=== PATIENT | male | born 1955 | race Caucasian/White ===

== ENCOUNTER 2025-03-08 22:03 | Inpatient (IN) | payer OTHER, MEDICARE, SELFPAY ==
[2025-03-08] VITALS (8 sets, daily range): BP systolic 118–157; BP diastolic 54–108; BMI 29.4
[2025-03-08 14:36] LABS: Urine Character Slightly Cloudy (Clear)
[2025-03-08 14:41] LABS: Urine Squamous Cell 0-2 /LPF (Few)
[2025-03-08 14:42] LABS: Urine Red Blood Cell 16-20 /HPF (0-2); Urine White Cell >100 /HPF (0-5)
[2025-03-08 14:43] LABS: Hematocrit 33.8 % (39.0-52.0); Hemoglobin 10.9 g/dL (13.0-18.0); Mean Corp Hgb Conc. 32.2 g/dL (33.0-37.0); Mean Corpuscular Volume 91.8 fL (80.0-94.0); Nucleated Red Blood Cells % 0 % (-); Platelet Count 246 10^3/uL (130-400); Red Cell Dist. Width 16.1 % (11.5-14.5)
[2025-03-08 14:58] LABS: ALT (SGPT) 18 U/L (0-50); AST (SGOT) 24 U/L (17-59); Albumin 4.2 g/dl (3.5-5.0); Alkaline Phosphatase 88 U/L (38-126); Blood Urea Nitrogen 24 mg/dl (9-20); Calcium 9.1 mg/dl (8.4-10.2); Carbon Dioxide 23 mmol/L (22-30); Chloride 100 mmol/L (98-107); Glucose 104 mg/dl (70-99); Potassium 4.6 mmol/L (3.5-5.1); Sodium 132 mmol/L (135-145); Total Protein 7.5 g/dl (6.3-8.2); eGFR 43.37
--- NOTE | 2025-03-08 18:10 | PHANOTE ---
med rec note- patient has no ecw, given time md office if closed to call, patient having trouble remembering medication dose, [facility] not fills [facility], asked patient if every used mail order or home delivery he said no
--- NOTE | 2025-03-08 18:19 | ED.GENMED ---
History of Present Illness
<Clau Cabrales ELECTRONIC SYSTEM ENGINEER - Last Filed: 03/09/25 00:41>
General
Chief Complaint: Male Genito-Urinary Symptoms
Source: patient
Exam Limitations: none
Time Seen by Provider: 03/08/25 17:51
Nursing documentation reviewed up to this point in time: agreed with
History of Present Illness
History of Present Illness:
70-year-old male with history of, Bilateral urostomy tubes 2023 s/p radiation for prostate CA 2001 that 'destroyed my bladder.' Followed at [facility] Dr. Nolan.
Had both nephrostomy tubes inserted in 2023, R urostomy tube removed in 05/2024 then replaced 12/15 due to sepsis per pt and .
Pt started with 'shakes and fever' 2 p.m. yesterday. Temp max last evening 101.2. Took Excedrin 9 a.m. Denies n/v/d/c. Denies CP, SOB, abdominal pain.
Had video call with PCP this evening and told to go to either [facility] or here. They chose here as more convenient.
Past History
<Clau Cabrales ELECTRONIC SYSTEM ENGINEER - Last Filed: 03/09/25 00:41>
Past History
ED Past Medical History: Cancer (prostate CA with radiation that destroyed his bladded: bilateral nephrostomy tubes)
ED Past Surgical History: Urological (bilateral nephrostomy tubes)
Social History
Tobacco: Smoker
Alcohol: Occasional
Personal:
Living: with family
Review of Systems
<Clau Cabrales ELECTRONIC SYSTEM ENGINEER - Last Filed: 03/09/25 00:41>
Review of Systems
Allergies reviewed?: Yes
All Other Systems: ROS reviewed and negative except as documented in HPI and ROS
Constitutional: Reports fever, fatigue and chills
Respiratory: Denies trouble breathing
Cardiac: Denies chest pain
ABD/GI: Denies abdominal pain, nausea, vomiting or diarrhea
: Reports other (Bilateral nephrostomy tubes, both functioning)
Skin: Reports no symptoms
Neurological: Reports no symptoms
Phy Exam
<Clau Cabrales, ELECTRONIC SYSTEM ENGINEER - Last Filed: 03/09/25 00:41>
Physical Exam
Physical Exam:
GENERAL: No acute distress. A&Ox3.
CONSTITUTIONAL: 103.2
EYES: clear, conjunctivae normal
ENMT: moist mucus membranes, Pharynx nl
RESPIRATORY: Regular respirations, nonlabored, lungs clear.
CARDIOVASCULAR: Regular rate and rhythm, tachycardic rate 110, no murmurs, no rubs.
GI: Soft, nontender, normal BS
: Bilateral nephrostomy tubes intact, no redness or swelling to surrounding skin , both draining
MUSCULOSKELETAL: Moves with ease. Well perfused.
SKIN: Warm, dry, pink
PSYCH: Normal mood and affect. Well kept, interactive and appropriate
NEUROLOGIC: Awake, alert and oriented. No focal neurological deficits
Sepsis
<Clau Cabrales, ELECTRONIC SYSTEM ENGINEER - Last Filed: 03/09/25 00:41>
Sepsis Screening
Sepsis Assessment: Sepsis
Sepsis Screen
Sepsis Screen: Sepsis
Date: 03/09/25
Time: 00:40
<Marcelo Mccarthy DO - Last Filed: 03/08/25 20:06>
Sepsis Screen
Sepsis Screen: Sepsis
Date: 03/08/25
Time: 20:05
Course
<Clau Cabrales, ELECTRONIC SYSTEM ENGINEER - Last Filed: 03/09/25 00:41>
Orders/Labs/Results
Orders:
Orders
03/08/25 14:14
Electrocardiogram (*1) Urgent
Reason for Study: Other
Other Reason for Exam: Possible Sepsis
EKG- Treatment ONCE
03/08/25 14:27
Complete Blood Count/With Diff Urgent
Comprehensive Metabolic Panel Urgent
Lactic Acid Urgent
Urinalysis Reflex To Culture Urgent
Date Specimen was Collected: 03/08/25
Time Specimen was Collected: 14:14
Comment: from nephrostomy tube
Urine Microscopic Reflex Cult Urgent
Blood Culture Urgent
ANDREINA Source: Blood/Venous
Specimen Description:
Urine Culture Urgent
ANDREINA Source: U
Specimen Description:
Obtained by: Random
Date Specimen was Collected: 03/08/25
Time Specimen was Collected: 14:14
03/08/25 18:31
0.9% Sodium Chloride 1000 ml [Nss] 2,600 ml IV NOW STA
03/08/25 18:32
Acetaminophen [Tylenol] 1,000 mg PO NOW STA
CefTRIAXone [Rocephin] 1,000 mg IV NOW STA
03/08/25 18:48
UROLOGY CONSULT Urgent
Consulting Provider: Jacob Rice Jr.
Was physician already notified: Yes
Comment: Urosepsis w bilateral ureterostomy tubes
03/08/25 18:53
Lactic Acid Q4H
Comment: CANCEL 2nd LACTIC ACID IF 1st LACTIC ACID IS LESS THAN 2
Blood Culture Q30M
ANDREINA Source: Blood/Venous
Specimen Description:
Blood Culture Q30M
ANDREINA Source: Blood/Venous
Specimen Description:
03/08/25 21:17
Admit/Transfer Patient As Directed
Co-Sign Provider:
Level of Care: Inpatient admission
Assign to:: IMU- Intermediate Care
Physician / Group: Salvatore
Diagnosis: UTI, Bilateral PCN
Reason for Hospitalization: UTI, Bilateral PCN
Expected length of stay greater than two midnights?: Yes
ELOS- Estimated Length of Stay in days: 3
I certify the patient meets the requirements for IP care: Yes
03/08/25 21:18
PRN Pain Medication Management As Directed
May give lesser potent ordered pain med per pt: Yes
preference::
Protocol:: Medication orders for pain may be administered in a
manner that supports deferring to patient preference
when the pt is:
- Requesting an ordered lesser potent pain medication.
Least to most potent pain medications are defined
as: acetaminophen < NSAID < tramadol < opioids
(morphine, oxycodone, hydromorphone).
- Requesting a lesser dose of the same medication IF
ORDERED.
- Requesting a less intrusive route of administration
if both routes are prescribed by the provider (PO <
IV).
03/08/25 21:19
Code Status As Directed
Resuscitation Status: Full Code
03/09/25 00:40
Lactic Acid Q6H
0.9% Sodium Chloride 1000 ml [Nss] 1,000 ml IV 125 mls/hr
Albuterol Nebs [Ventolin Nebules] 2.5 mg INH R Q4HPRN PRN
CefTRIAXone [Rocephin] 1,000 mg IV Q24H
03/09/25 00:40
Ferritin Routine
Iron Routine
Total Iron Binding Routine
Activity As Directed
Activity Level: Ambulate
With Assistance
I/O [Intake/ Output] As Directed
Frequency: Per unit guidelines
Records Request [Obtain Records] As Directed
Dates of Information to be Released: Most Recent
Type of Information Requested: Entire Record
Obtain Records from: [facility]
Vital Signs As Directed
Frequency: Per unit guidelines
Weight As Directed
Frequency: Daily
Oxygen Therapy [O2 Therapy] [RESP] Routine
Titrate/Wean O2 to maintain O2 sat greater than (%): 94
DX Deep Vein Thrombosis Video Routine
03/09/25 01:00
Acetaminophen [Tylenol] 650 mg PO Q4HPRN PRN
03/09/25 Breakfast
NPO
Allow oral meds: Yes
Allow clear liquids: Sips of Clears
Basic Metabolic Panel IN AM
Complete Blood Count/No Diff IN AM
03/09/25 08:00
Heparin 5,000 units SC Q12
Levothyroxine [Synthroid] 112 mcg PO DAILY
Abnormal Lab Results
03/08/25
14:27
WBC 13.4 H 10^3/uL
(4.8-10.8)
RBC 3.68 L 10^6/uL
(4.70-6.10)
Hgb 10.9 L g/dL
(13.0-18.0)
Hct 33.8 L %
(39.0-52.0)
MCHC 32.2 L g/dL
(33.0-37.0)
RDW 16.1 H %
(11.5-14.5)
Abs Immat Gran (auto) 0.1 H 10^3/uL
(0-0.05)
Absolute Neuts (auto) 11.3 H 10^3/uL
(1.4-6.5)
Absolute Lymphs (auto) 0.8 L 10^3/uL
(1.2-3.4)
Absolute Monos (auto) 1.2 H 10^3/uL
(0.1-0.6)
Neutrophils % 84.5 H %
(42.2-75.2)
Lymphocytes % 5.7 L %
(20.5-51.1)
Sodium 132 L mmol/L
(135-145)
BUN 24 H mg/dl
(9-20)
Creatinine 1.7 H mg/dL
(0.7-1.3)
Glucose 104 H mg/dl
(70-99)
Ur Occult Blood Reflex 4+ A
(Negative)
Urine Nitrite (Reflex) Positive A
(Negative)
Leukocyte Esterase Rfl 3+ A
(Negative)
Urine RBC 16-20 A /HPF
(0-2)
Urine WBC (Reflex) >100 A /HPF
(0-5)
Urine Bacteria (Reflex) Moderate A
(Negative)
Urine Albumin (Reflex) 3+ A
(Neg - Trace)
03/08/25 14:27
03/08/25 14:27
Vital Signs
Initial and Last Documented VS:
Initial Vital Signs
Temp Pulse Resp BP Pulse Ox
99 F 116 20 139/97 99
03/08/25 14:07 03/08/25 14:07 03/08/25 14:07 03/08/25 14:07 03/08/25 14:07
Last Documented Vital Signs
Temp Pulse Resp BP Pulse Ox
103 F H 104 26 157/78 94
03/09/25 00:15 03/08/25 23:45 03/08/25 23:45 03/08/25 23:01 03/08/25 19:00
Yelt;Marcelo Mccarthy, DO - Last Filed: 03/08/25 20:06>
Orders/Labs/Results
Orders:
Orders
03/08/25 14:14
Electrocardiogram (*1) Urgent
Reason for Study: Other
Other Reason for Exam: Possible Sepsis
EKG- Treatment ONCE
03/08/25 14:27
Complete Blood Count/With Diff Urgent
Comprehensive Metabolic Panel Urgent
Lactic Acid Urgent
Urinalysis Reflex To Culture Urgent
Date Specimen was Collected: 03/08/25
Time Specimen was Collected: 14:14
Comment: from nephrostomy tube
Urine Microscopic Reflex Cult Urgent
Blood Culture Urgent
ANDREINA Source: Blood/Venous
Specimen Description:
Urine Culture Urgent
ANDREINA Source: U
Specimen Description:
Obtained by: Random
Date Specimen was Collected: 03/08/25
Time Specimen was Collected: 14:14
03/08/25 18:31
0.9% Sodium Chloride 1000 ml [Nss] 2,600 ml IV NOW STA
03/08/25 18:32
Acetaminophen [Tylenol] 1,000 mg PO NOW STA
CefTRIAXone [Rocephin] 1,000 mg IV NOW STA
03/08/25 18:48
UROLOGY CONSULT Urgent
Consulting Provider: Jacob Rice Jr.
Was physician already notified: Yes
Comment: Urosepsis w bilateral ureterostomy tubes
03/08/25 18:53
Lactic Acid Q4H
Comment: CANCEL 2nd LACTIC ACID IF 1st LACTIC ACID IS LESS THAN 2
Blood Culture Q30M
ANDREINA Source: Blood/Venous
Specimen Description:
Blood Culture Q30M
ANDREINA Source: Blood/Venous
Specimen Description:
03/08/25 21:17
Admit/Transfer Patient As Directed
Co-Sign Provider:
Level of Care: Inpatient admission
Assign to:: IMU- Intermediate Care
Physician / Group: Salvatore
Diagnosis: UTI, Bilateral PCN
Reason for Hospitalization: UTI, Bilateral PCN
Expected length of stay greater than two midnights?: Yes
ELOS- Estimated Length of Stay in days: 3
I certify the patient meets the requirements for IP care: Yes
03/08/25 21:18
PRN Pain Medication Management As Directed
May give lesser potent ordered pain med per pt: Yes
preference::
Protocol:: Medication orders for pain may be administered in a
manner that supports deferring to patient preference
when the pt is:
- Requesting an ordered lesser potent pain medication.
Least to most potent pain medications are defined
as: acetaminophen < NSAID < tramadol < opioids
(morphine, oxycodone, hydromorphone).
- Requesting a lesser dose of the same medication IF
ORDERED.
- Requesting a less intrusive route of administration
if both routes are prescribed by the provider (PO <
IV).
03/08/25 21:19
Code Status As Directed
Resuscitation Status: Full Code
03/09/25 00:40
Lactic Acid Q6H
0.9% Sodium Chloride 1000 ml [Nss] 1,000 ml IV 125 mls/hr
Albuterol Nebs [Ventolin Nebules] 2.5 mg INH R Q4HPRN PRN
CefTRIAXone [Rocephin] 1,000 mg IV Q24H
03/09/25 00:40
Ferritin Routine
Iron Routine
Total Iron Binding Routine
Activity As Directed
Activity Level: Ambulate
With Assistance
I/O [Intake/ Output] As Directed
Frequency: Per unit guidelines
Records Request [Obtain Records] As Directed
Dates of Information to be Released: Most Recent
Type of Information Requested: Entire Record
Obtain Records from: [facility]
Vital Signs As Directed
Frequency: Per unit guidelines
Weight As Directed
Frequency: Daily
Oxygen Therapy [O2 Therapy] [RESP] Routine
Titrate/Wean O2 to maintain O2 sat greater than (%): 94
DX Deep Vein Thrombosis Video Routine
03/09/25 01:00
Acetaminophen [Tylenol] 650 mg PO Q4HPRN PRN
03/09/25 Breakfast
NPO
Allow oral meds: Yes
Allow clear liquids: Sips of Clears
Basic Metabolic Panel IN AM
Complete Blood Count/No Diff IN AM
03/09/25 08:00
Heparin 5,000 units SC Q12
Levothyroxine [Synthroid] 112 mcg PO DAILY
Abnormal Lab Results
03/08/25
14:27
WBC 13.4 H 10^3/uL
(4.8-10.8)
RBC 3.68 L 10^6/uL
(4.70-6.10)
Hgb 10.9 L g/dL
(13.0-18.0)
Hct 33.8 L %
(39.0-52.0)
MCHC 32.2 L g/dL
(33.0-37.0)
RDW 16.1 H %
(11.5-14.5)
Abs Immat Gran (auto) 0.1 H 10^3/uL
(0-0.05)
Absolute Neuts (auto) 11.3 H 10^3/uL
(1.4-6.5)
Absolute Lymphs (auto) 0.8 L 10^3/uL
(1.2-3.4)
Absolute Monos (auto) 1.2 H 10^3/uL
(0.1-0.6)
Neutrophils % 84.5 H %
(42.2-75.2)
Lymphocytes % 5.7 L %
(20.5-51.1)
Sodium 132 L mmol/L
(135-145)
BUN 24 H mg/dl
(9-20)
Creatinine 1.7 H mg/dL
(0.7-1.3)
Glucose 104 H mg/dl
(70-99)
Ur Occult Blood Reflex 4+ A
(Negative)
Urine Nitrite (Reflex) Positive A
(Negative)
Leukocyte Esterase Rfl 3+ A
(Negative)
Urine RBC 16-20 A /HPF
(0-2)
Urine WBC (Reflex) >100 A /HPF
(0-5)
Urine Bacteria (Reflex) Moderate A
(Negative)
Urine Albumin (Reflex) 3+ A
(Neg - Trace)
03/08/25 14:27
03/08/25 14:27
Vital Signs
Initial and Last Documented VS:
Initial Vital Signs
Temp Pulse Resp BP Pulse Ox
99 F 116 20 139/97 99
03/08/25 14:07 03/08/25 14:07 03/08/25 14:07 03/08/25 14:07 03/08/25 14:07
Last Documented Vital Signs
Temp Pulse Resp BP Pulse Ox
103 F H 104 26 157/78 94
03/09/25 00:15 03/08/25 23:45 03/08/25 23:45 03/08/25 23:01 03/08/25 19:00
<Clau Cabrales, ELECTRONIC SYSTEM ENGINEER - Last Filed: 03/09/25 00:41>
MDM/Problems Addressed
Differential Diagnosis Includes:
urosepsis
MDM/Problems Addressed:
70-year-old male with history of, Bilateral urostomy tubes 2023 s/p radiation for prostate CA 2001 that 'destroyed my bladder.' Followed at [facility] Dr. Nolan.
Had both nephrostomy tubes inserted in 2023, R urostomy tube removed in 05/2024 then replaced 12/15 due to sepsis per pt and .
Pt started with 'shakes and fever' 2 p.m. yesterday. Temp max last evening 101.2. Took Excedrin 9 a.m. Denies n/v/d/c. Denies CP, SOB, abdominal pain.
Had video call with PCP this evening and told to go to either [facility] or here. They chose here as more convenient.
Temp 103.2
6:45 p.m.
CBC: WBC 13.4
CMP Creat 1.7 pt states his baseline is 1.4-1.6
Urine infected >100 WBCs, +Leukocyte Est +Nitrites
Septic protocol instituted
Consulted Urology Dr. Rice who will see in a.m. if nephrostomy tubes are functional will need IR tomorrow. Pt states both tubes are functional, R less so than left. R only gets 200 ml twice a day per patient...it's been that way ever since he got
the tubes.
7:15 p.m
Hospitalist notified of admission.
<Clau Cabrales, ELECTRONIC SYSTEM ENGINEER - Last Filed: 03/09/25 00:41>
*Pulse Oximetry
SaO2: 96
Oxygen Mode of Delivery: Room air
Patient hypoxic: no
*Critical Care Note
Total Time (30-74mins, 75-104mins- exclusive of procedures): Not Applicable
ED Attending Note
<Clau Cabrales, ELECTRONIC SYSTEM ENGINEER - Last Filed: 03/09/25 00:41>
-
Portions of this chart may have been created with voice recognition software.� Occasional wrong word or��sound alike� substitutions may have occurred due to the inherent limitations of voice recognition software.
<Marcelo Mccarthy DO - Last Filed: 03/08/25 20:06>
ED Attending Note
Patient seen and examined by attending physician: Yes
I performed the substantive portion of visit, reviewed & personally made and approve the management plan that is documented in note by myself or ALEXIA.: Yes
I performed a history and physical exam of patient and discussed management with resident, I reviewed resident's note and agree with documented findings and plan of care.: Yes
ED Attending Note:
70-year-old male presents to the ER for evaluation of fever. Patient has a prior history of prostate cancer and has bilateral nephrostomy tubes due to of side effect from radiation. Patient reports feeling generally unwell. Vital signs reviewed,
patient is awake, alert, appears no acute distress, mucous membranes tacky, heart regular rate and rhythm that murmurs or ectopy, GCS is 15, extremities without edema. Nurse practitioner was able to speak with on-call urology who would recommend IR
consultation in the morning for likely tube change. IV antibiotics are ordered. Patient admitted to the hospitalist in stable condition.
Discharge Plan
Departure
Patient Disposition: Admit
Date of Disposition: 03/08/25
Time of Disposition: 19:19
Presentation/result/management discussed w/ accepting MD/DO: Hospitalist
Condition: Serious
Discharge Problem:
Urosepsis
Interventions
Interventions:
*General Assessment Last Done: 03/08/25 18:19
*Neglect/Abuse Screening Last Done: 03/08/25 14:07
*ED COVID-19 Vaccine History Last Done: 03/08/25 18:19
*ED Influenza Vaccine History Last Done: 03/08/25 18:19
[facility] Risk Assessment Tool Last Done: 03/08/25 18:19
*Risk Screen - Suicide (C-SSRS) Last Done: 03/08/25 14:07
ED-Male Genitourinary Assessment Last Done: 03/08/25 17:46
[2025-03-08] MEDS: NSS 2600 ML IV (18:54)
[2025-03-08] MEDS: ROCEPHIN 1000 MG IV (18:55)
[2025-03-08] MEDS: TYLENOL 1000 MG PO (18:55)
--- NOTE | 2025-03-08 21:22 | HPS.HSE ---
Family Physician
-
Family Physician: Sravani Silva MD
Chief Complaint
-
Fever / Chills
History of Present Illness
Patient is a 70y M with PMH significant for obstructive uropathy and bilateral PCN tubes s/p prostate radiation who presents to ED complaining of fevers and chills since yesterday. Patient notes development of fevers, shaking chills and profuse
sweating yesterday afternoon. His symptoms persisted overnight and today he presented to the ED for further evaluation. Patient has bilateral PCN tubes in place.
He developed obstructive uropathy s/p prostate XRT and had tubes initially placed in 2022. His R PCN was removed for about 4-6 months. He developed UTI / sepsis in November of this year, was admitted at [facility] and the R PCN was replaced
at that time.
Patient states that he has felt fairly well since that hospitalization until yesterday.
He denies any cough, dyspnea, N/V/D, etc.
He does not urinate from below.
He reports normal urine output from his PCN tubes - always L > > R.
Medical History
Past Medical History
Past Medical History: Reports Other
Additional Past Medical History:
Prostate Cancer s/p XRT
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
CKD III
Hypothyroidism
Dyslipidemia
Asthma
Past Surgical History: Reports Other
Additional Past Surgical History:
T&A
Bilateral PCN Tubes (last replaced 11/2024)
Social History
Tobacco: Non-smoker
Alcohol: Occasional
Drug: None
Family History
Family History: Not pertinent
Allergies / Home Medications
Allergies reflects when Allergies were last updated in [employer].
Home Medications with original date entered in [employer]
Allergy/Medication List:
Allergies
Allergy/AdvReac Type Severity Reaction Status Date / Time
No Known Allergies Allergy Unverified 03/08/25 14:13
Home Medications
Crestor 1 tab PO DAILY 03/08/25
Symbicort 1 puff inhalation R DAILY Lung/Breathing Issues 03/08/25
albuterol sulfate 90 mcg/actuation aerosol inhaler 2 puff inhalation R Q6HPRN PRN sob 03/08/25
djfcqbf-emozyyogylbjc-oyodmimo 250 mg-250 mg-65 mg tablet (Excedrin Extra Strength) 2 tab PO DAILY Anti-Inflammatory 03/08/25
cetirizine 10 mg tablet (Zyrtec) 10 mg PO DAILY Allergies 03/08/25
levothyroxine 112 mcg tablet (Synthroid) 112 mcg PO DAILY 03/08/25
Review of Systems
-
History Source: Patient
A 12 point ROS was completed and negative except as noted: Yes
Constitutional: Reports Fever, Fatigue and Chills
EENT: Denies Sore Throat
Respiratory: Denies Cough or Trouble Breathing
Cardiac: Denies Chest Pain or Palpitations
Abdomen/GI: Denies Abdominal Pain, Nausea, Vomiting or Diarrhea
: Denies Dysuria, Flank Pain or Bleeding
Neurological: Denies Dizzy or Headache
Psych: Denies Depression or Anxiety
Physical Exam
Vital Signs
Vital Signs
Temp Pulse Resp BP Pulse Ox
100.1 F 101 26 118/54 94
03/08/25 20:19 03/08/25 20:15 03/08/25 20:15 03/08/25 20:00 03/08/25 19:00
Physical Exam
General: Other (70y M in no acute distress. Diaphoresis. Tactile fever.)
HEENT: Moist mucous membranes and PERRLA
Respiratory: Clear; No Wheezes, Rales or Rhonchi
Cardiac: S1/S2 and Regular Rhythm; No Murmur
GI: Soft, Non Tender, Non Distended and Normal Bowel Sounds
Genito-urinary: Other (b/l PCN tubes in place. Posterior sites well-appearing without bleeding / discharge. Urine output L > > R with dark urine in device.)
Musculoskeletal: No Clubbing, No Cyanosis and No Edema
Neuro: AO x 3
Laboratory Results
-
03/08/25 14:27
03/08/25 14:27
Laboratory Results
Lactic Acid Cancelled 03/08/25 22:45
Total Bilirubin 0.5 mg/dl (0.2-1.3) 03/08/25 14:27
AST 24 U/L (17-59) 03/08/25 14:27
ALT 18 U/L (0-50) 03/08/25 14:27
Alkaline Phosphatase 88 U/L (38-126) 03/08/25 14:27
Impression/Plan
-
A/P: Patient is a 70y M with PMH significant for bilateral obstructive uropathy s/p prostate XRT who presents to ED complaining of fevers / chills.
UTI
Obstructive Uropathy
Chronic Bilateral PCN Tubes
- Admit for further evaluation and treatment.
- IVFs, IV abx and follow-up culture data.
- Both PCN tubes appears to be functioning normally per patient.
- IR eval in AM for tube assessment / exchange.
- Urology evaluation for additional recommendations.
- Follow fever curve. Follow for any new / worsening symptoms.
CKD III
- Stable. Renal function is near stated baseline SCr of 1.5 (per patient).
- Follow for changes with IVFs, etc.
Normocytic Anemia
- ? baseline / chronicity.
- Check iron studies. Follow for any evidence of active bleeding, etc.
Asthma without Acute Exacerbation
- Stable. Nebs PRN.
Prostate Cancer s/p XRT
DVT Prophylaxis: Subcut Heparin
Code Status: Full
[2025-03-09] VITALS (26 sets, daily range): BP systolic 79–170; BP diastolic 56–91; BMI 28.3
[2025-03-09] MEDS: NSS 1000 IV (00:53)
[2025-03-09] MEDS: OFIRMEV 100 IV (00:53)
--- NOTE | 2025-03-09 01:30 | PTCARENOTE ---
Received patient from the ED around 0100 as an IMU overflow. Oral temp 103. Given offirmev x1. IVF initiated. B/l nephrostomy tubes draining cloudy yellow urine. See worklist for nursing assessment details. NPO with plan for IR in am for nephrostomy
tube exchange.
[2025-03-09 04:48] LABS: Iron < 20 ug/dl (49-181)
[2025-03-09 04:49] LABS: Blood Urea Nitrogen 20 mg/dl (9-20); Calcium 7.9 mg/dl (8.4-10.2); Carbon Dioxide 18 mmol/L (22-30); Chloride 109 mmol/L (98-107); Estimated Creatinine Clearance 46 ml/min; Glucose 108 mg/dl (70-99); Potassium 3.5 mmol/L (3.5-5.1); Sodium 135 mmol/L (135-145); eGFR 50.40
[2025-03-09 04:57] LABS: Total Iron Binding Capacity 214 ug/dl (261-462)
[2025-03-09] MEDS: SYNTHROID 112 MCG PO (05:09)
[2025-03-09 05:21] LABS: Ferritin 235.0 ng/ml (17.9-464.0)
[2025-03-09 06:30] LABS: Hematocrit 26.8 % (39.0-52.0); Hemoglobin 8.9 g/dL (13.0-18.0); Mean Corp Hgb Conc. 33.2 g/dL (33.0-37.0); Mean Corpuscular Volume 90.5 fL (80.0-94.0); Platelet Count 187 10^3/uL (130-400); Red Cell Dist. Width 16.3 % (11.5-14.5)
--- NOTE | 2025-03-09 07:18 | CON.MD ---
Consultation - Medical
-
see dictated note
pt has received all care at [facility]
hx of prostate cancer and xrt with resultant radiation scarring of bladder and bilateral ureteral obstruction
now managed with nephrostomy tubes
has had infx episodes requiring hospitalization- last in nov managed at [facility] with antibx and nephrostomy tube changes
developed fevers and chills- came to last night
has quickly defervesed- currently af/vss/wbc and lactic acid normalized
tubes functional
plan
continue medical care- await cx results
pt was due for tube exchange at [facility] on mar 27- requests that tubes be changed here- will speak with IR- would plan in 24-48hrs
follow up with [facility] after discharge
Consultation
-
Date/Time Consultation Requested: 03/08/25 at 6:45pm
Date/Time Consultation Performed: 03/09/25 at 7am
Requesting Provider: ER
Performing Provider: Dr Rice
Reason for Consultation: sepsis and nephrostomy tubes
--- NOTE | 2025-03-09 07:45 | W.PN.HOSP.TC ---
Today's Communication/Plan
-
see A/P
Assessment / Plan
Assessment / Plan
HPI: 70 yo M with PMH significant for obstructive uropathy and bilateral PCN tubes s/p prostate radiation, who presented to ED complaining of fevers and chills the day [employer].
He developed obstructive uropathy s/p prostate XRT and had tubes initially placed in 2022. His R PCN was removed for about 4-6 months. He developed UTI / sepsis in November of this year, was admitted at [facility] and the R PCN was replaced at
that time.
He does not urinate from below.
He reports normal urine output from his PCN tubes - always L > > R
A/P:
# Likely sepsis POA 2/2 complicated UTI, in setting of Chronic Bilateral PCN Tubes for obstructive uropathy
Both PCN tubes appears to be functioning normally per patient.
For tube exchange, IR consulted
Follow blood cultures, urine culture
Cont current ceftriaxone
# CKD III, stable.
Renal function is near stated baseline SCr of 1.5 (per patient).
Follow for changes with IVFs, etc.
# Normocytic Anemia, suspect chronic 2/2 ACD
Mild drop in Hgb likely 2/2 dilutional effect
iron studies suggest ACD
# Asthma without Acute Exacerbation, Stable.
Nebs PRN.
# Prostate Cancer s/p XRT
# Hypokalemia
replete
DVT Prophylaxis: Subcut Heparin
Code Status: Full
d/w RN
Anticipated Discharge: 24 - 48 hours
Subjective/Interval History
-
Date of Service: March 09, 2025
Objective Data
-
Labs:
Laboratory Results
03/09/25
04:06
WBC 10.0
Hgb 8.9 L
Hct 26.8 L
Plt Count 187 D
Sodium 135
Potassium 3.5
Chloride 109 H
Carbon Dioxide 18 L
BUN 20
Creatinine 1.5 H
Glucose 108 H
Calcium 7.9 L
Vital Signs:
Vital Signs
Temp Pulse Resp BP Pulse Ox
36.8 C 81 20 114/69 98
03/09/25 05:32 03/09/25 06:15 03/09/25 06:15 03/09/25 06:00 03/09/25 06:15
I&O
03/08/25 03/09/25 03/10/25
06:59 06:59 06:59
Intake Total 750 / 750
Output Total 1974
Balance -1225 / -1225
Review of Systems
-
History Source: Patient
Constitutional: Reports Chills (occasional)
Physical Exam
-
General: Well Developed, Well Nourished, No Apparent Distress, Comfortable and Conversant; Negative Respiratory Distress
HEENT: Normocephalic, Atraumatic, Nose Appears Normal, Ears Appear Normal and Oxygen (1.5L NC)
Respiratory: Clear to Auscultation and Non Labored Respirations; Negative Accessory Resp Muscle Use
Cardiac: Regular Rhythm and S1/S2
GI: Soft, Nontender, Nondistended and Normal Bowel Sounds
Genito-urinary: Nephrostomy Tubes (BL , L drains better than R)
Skin: Warm and Dry
Neuro: Awake, Alert, Oriented and AO x 3
Psych: Calm and Intact Judgement/Insight
Data Reviewed
-
Labs: Labs Reviewed by me
[2025-03-09] MEDS: TYLENOL 650 MG PO ×2 (08:18→20:07)
[2025-03-09] MEDS: KCL 40 MEQ PO (08:18)
[2025-03-09] MEDS: HEPARIN 5000 UNITS SC ×2 (08:18→20:05)
--- NOTE | 2025-03-09 09:18 | PTCARENOTE ---
Received pt awake and alert.Speech is appropriate.+RICE.c/o headache.Requested and received Tylenol.SR noted.IVF infusing.Lungs CTA.POX 96% O2 2l NC.Tolerating oral meds.No BM.BL nephrostomy tunes draining yellow urine.Pt fir Nephrostomy tube change
in IR today as per MD order.Plan of care discussed with pt.
[2025-03-09] MEDS: ZOSYN 50 IV ×2 (12:14→17:27)
--- NOTE | 2025-03-09 12:21 | PTCARENOTE ---
Pt assessed.Pt declines getting oob to chair and completing hygiene.He states he is tired.No change in assessment noted.
--- NOTE | 2025-03-09 13:55 | PTCARENOTE ---
Pt transported to IR.
--- NOTE | 2025-03-09 15:35 | CM ---
Initial assessment completed. Patient is a 70y M with PMH significant for obstructive uropathy and bilateral PCN tubes s/p prostate radiation who presents to ED complaining of fevers and chills.
Patient resides w/ spouse in a 2STH, 6 steps to enter. Patient is independent in all areas. No DME. No therapy hx. VN last year.
Address, point of contact and insurance verified
PCP: Sravani Silva
[facility]
Plan: Home, no needs anticipated
--- NOTE | 2025-03-09 16:41 | PTCARENOTE ---
Pt transported to ICU at 1600.Pt assessed.no change in assessment noted.BL nephrostomy tubes draining yellow urine.
--- NOTE | 2025-03-09 16:51 | PTCARENOTE ---
Report given to IMU RN.
--- NOTE | 2025-03-09 18:13 | PTCARENOTE ---
Received patient on transfer from ICU via bed. Ox3, HRR SR on monitor. L nephrostomy tube drained 175 yellow; R nephrostomy tube drained 40 pink/yellow. See worklist for full assessment.
[2025-03-10] VITALS (19 sets, daily range): BP systolic 106–145; BP diastolic 57–102; BMI 28.3
[2025-03-10] MEDS: ZOSYN 50 IV ×4 (00:41→17:08)
[2025-03-10] MEDS: SYNTHROID 112 MCG PO (05:18)
[2025-03-10 05:58] LABS: Hematocrit 28.1 % (39.0-52.0); Hemoglobin 9.2 g/dL (13.0-18.0); Mean Corp Hgb Conc. 32.7 g/dL (33.0-37.0); Mean Corpuscular Volume 89.8 fL (80.0-94.0); Nucleated Red Blood Cells % 0 % (-); Platelet Count 195 10^3/uL (130-400); Red Cell Dist. Width 16.1 % (11.5-14.5)
--- NOTE | 2025-03-10 06:18 | PTCARENOTE ---
Received pt at change of shift. Temp 100.4. Tylenol administered. Recheck was down to 99.6. Right nephrostomy tube draining pink urine; producing less urine than the left tube. Pt offers no complaints at this time. Resting in bed with call
richardson in reach.
[2025-03-10 07:30] LABS: Carbon Dioxide 21 mmol/L (22-30); Estimated Creatinine Clearance 49 ml/min; eGFR 54.75
--- NOTE | 2025-03-10 07:46 | W.PN.URO.CBU ---
Today's Communication / Plan
-
urologically stable
call with questions
Assessment / Plan
-
hx of xrt for prostate cancer
resultant bilateral ureteral obstruction
admitted with UTI
pt improved
tubes exchanged
waiting for final cx results
should f/u with urology at [facility] to discuss management options after discharge
Diagnosis
-
Date of Service: March 10, 2025
-
Patient Diagnosis:
UTI
prostate cancer s/p XRT
ureteral obstruction with bilateral nephrostomy tubes
Post Op Day:
bilateral nephrostomy tube exchange 03/10
Subjective
-
pt feeling better
wbc normalized- no fevers
ucx enterococcus
had nephrostomy tubes exchanged yesterday
Objective
-
Vital Signs
Temp Pulse Resp BP Pulse Ox
99.4 F 80 21 137/79 94
03/10/25 03:00 03/10/25 06:15 03/10/25 06:15 03/10/25 06:00 03/10/25 06:15
Intake and Output
03/09/25 03/10/25 03/11/25
06:59 06:59 06:59
Intake Total 750 / 750 465 / 465
Output Total 1974 1415 / 1415
Balance -1225 / -1225 -950 / -950
Intake:
Oral fluids 240 / 240
IV fluids (Total) 750 / 750 125 / 125
Nss 1,000 ml @ 125 mls/hr IV . 750 / 750 125 / 125
Q8H CALEB Rx#:[id number]
IV piggybacks 100 / 100
Output:
Urinary Drain Output (Total) 1974 1415 / 1415
Left Nephrostomy 800 / 800 1125 / 1125
Right Nephrostomy 525 / 525 290 / 290
Laboratory Results
03/10/25 05:29
03/10/25 06:42
Review of Systems
-
Constitutional: No Symptoms
Respiratory: No Symptoms
Cardiac: No Symptoms
Abdomen/GI: No Symptoms
Physical Exam
-
General - no acute distress
[2025-03-10] MEDS: HEPARIN 5000 UNITS SC (08:35)
[2025-03-10] MEDS: VENTOLIN NEBULES 2.5 MG INH (08:56)
--- NOTE | 2025-03-10 09:03 | W.PN.HOSP.TC ---
Today's Communication/Plan
-
see A/P
Assessment / Plan
Assessment / Plan
HPI: 70 yo M with PMH significant for obstructive uropathy and bilateral PCN tubes s/p prostate radiation, who presented to ED complaining of fevers and chills the day [employer].
He developed obstructive uropathy s/p prostate XRT and had tubes initially placed in 2022. His R PCN was removed for about 4-6 months. He developed UTI / sepsis in November of this year, was admitted at [facility] and the R PCN was replaced at
that time.
He does not urinate from below.
He reports normal urine output from his PCN tubes - always L > > R
A/P:
# Likely sepsis POA 2/2 complicated UTI, in setting of Chronic Bilateral PCN Tubes for obstructive uropathy
Both PCN tubes appears to be functioning normally per patient.
s/p BL tube exchange by IR 03/09
Admission blood cultures negative, follow urine culture (growing Pseudomonas and Enterococcus, pending sensitivity)
ceftriaxone -> Zosyn for enterococcus coverage
# CKD III, stable.
SCr at 1.4 today, at baseline
# Normocytic Anemia, suspect chronic 2/2 ACD
iron studies suggest ACD
Hgb stable at 9.2 today
# Asthma without Acute Exacerbation, Stable.
Nebs PRN.
# Prostate Cancer s/p XRT
# Hypokalemia
replete
DVT Prophylaxis: Subcut Heparin
Code Status: Full
Anticipated Discharge: Within 24 hours
Subjective/Interval History
-
Date of Service: March 10, 2025
Objective Data
-
Labs:
Laboratory Results
03/10/25 03/10/25
05:29 06:42
WBC 6.4
Hgb 9.2 L
Hct 28.1 L
Plt Count 195
Sodium Cancelled Pending
Potassium Cancelled Pending
Chloride Cancelled Pending
Carbon Dioxide Cancelled 21 L
BUN Cancelled Pending
Creatinine Cancelled 1.4 H
Glucose Cancelled Pending
Calcium Cancelled Pending
Vital Signs:
Vital Signs
Temp Pulse Resp BP Pulse Ox
37.4 C 83 20 137/79 95
03/10/25 03:00 03/10/25 08:56 03/10/25 08:56 03/10/25 06:00 03/10/25 08:56
I&O
03/09/25 03/10/25 03/11/25
06:59 06:59 06:59
Intake Total 750 / 750 465 / 465
Output Total 1974 / 1974 1415 / 1415
Balance -1225 / -1225 -950 / -950
Review of Systems
-
History Source: Patient
All other systems: Reviewed and negative
Physical Exam
-
General: Well Developed, Well Nourished, No Apparent Distress, Comfortable and Conversant
HEENT: Normocephalic, Atraumatic, Nose Appears Normal and Ears Appear Normal; Negative Oxygen
Respiratory: Clear to Auscultation and Non Labored Respirations; Negative Accessory Resp Muscle Use
Cardiac: Regular Rhythm and S1/S2
GI: Soft, Nontender, Nondistended and Normal Bowel Sounds
Genito-urinary: Nephrostomy Tubes (BL )
Skin: Warm and Dry
Neuro: Awake, Alert, Oriented and AO x 3
Psych: Calm and Intact Judgement/Insight
Data Reviewed
-
Labs: Labs Reviewed by me
[2025-03-10 09:16] LABS: Blood Urea Nitrogen 18 mg/dl (9-20); Calcium 8.2 mg/dl (8.4-10.2); Chloride 107 mmol/L (98-107); Glucose 86 mg/dl (70-99); Magnesium 2.1 mg/dl (1.6-2.3); Potassium 3.8 mmol/L (3.5-5.1); Sodium 133 mmol/L (135-145)
--- NOTE | 2025-03-10 16:33 | CM ---
Addendum entered by Torie Alva 03/10/25 17:30:
Patient does not want Home Care. IMM completed.
Original Note:
F/U: Patient still be monitored with urine cultures to determine Abx. Patient has Bilateral PCN Tubes. Patient Independent prior. PLAN: Home w/ Infusion or No Needs.
--- NOTE | 2025-03-10 16:49 | W.DCSUMMARY ---
Discharge Summary
Discharge Data
Date of Admission: 03/08/25
Date of Discharge: 03/10/25
Total time spent discharging patient (in min): 40
-
Pending Results: No
Hospital Course
Principal Diagnosis:
Sepsis POA 2/2 complicated UTI, in setting of Chronic Bilateral PCN Tubes for obstructive uropathy
Chronic Diagnoses:�
CKD III, stable.
Normocytic Anemia, 2/2 ACD
Asthma Stable.
Prostate Cancer s/p XRT
Consultations:�
Urology
Procedures:�
s/p BL PCN tube exchanged by IR 03/09/2025
Clinical course:�
This is a 70 year old male with PMH as stated above, who presented to the emergency room due to fever and chills.
Problem 1:
Sepsis POA 2/2 complicated UTI, in setting of Chronic Bilateral PCN Tubes for obstructive uropathy.
According to patient, both PCN tubes appeared to be functioning normally.
He underwent BL tube exchange by IR on 03/09/2025.
His urine culture grew Pansensitive Pseudomonas and Enterococcus.
He received Zosyn while in the hospital, and was discharged with oral ciprofloxacin for 12 more days (total 14 days) for complicated UTI coverage.
As for the rest of his medical problems, they were stable during his hospital stay.
Discharge Plan
-
Patient Disposition: Home (Routine Discharge)
Discharge Diagnosis/Procedures: Complicated UTI in setting of Chronic Bilateral PCN Tubes for obstructive uropathy;
s/p BL tube exchange by IR 03/09
Condition: Good
Diet: As tolerated
Activity: As tolerated
Driving Restrictions: As prior to admission
Referrals:
Sravani Silva MD [Family Provider, Family Practice] - in less than 1 week
Additional Discharge Medication Instructions: Continue antibiotic with Cipro for 12 more days
Prescriptions:
New
ciprofloxacin HCl 500 mg tablet
500 mg PO ONCE 12 Days Qty: 12 0RF
Continued
cetirizine [Zyrtec] 10 mg Tablet
10 mg PO DAILY
albuterol sulfate 90 mcg/actuation Hfa Aerosol Inhaler
2 puff INHALATION R Q6HPRN PRN (Reason: sob)
[id number]-[id number] [Excedrin Extra Strength] 250-250-65 mg Tablet
2 tab PO DAILY
levothyroxine [Synthroid] 112 mcg Tablet
112 mcg PO DAILY
Crestor
1 tab PO DAILY
Symbicort
1 puff inhalation R DAILY
Discharge Orders:
Discharge Patient (As Directed); Ordered 03/10/25
Ordered By: Esperanza Alfonso
Discharge Date and Time
Print Language: ISRAELI
--- NOTE | 2025-03-10 19:18 | PTCARENOTE ---
see nursing flowsheet. discharge ordered placed this afternoon. pt notified of discharge order and pt stated that hes not comfortable with being discharged home bc he had a temp of 100 earlier and also bc his was already here to visit and left.
dr Alfonso made aware. b/l/nephrostomies tubes draining yellow/pink urine.
[2025-03-10] MEDS: HEPARIN SC (20:31)
[2025-03-11] VITALS (13 sets, daily range): BP systolic 114–164; BP diastolic 70–96
[2025-03-11] MEDS: ZOSYN 50 IV ×3 (00:22→11:49)
--- NOTE | 2025-03-11 03:04 | PTCARENOTE ---
Received pt at change of shift. AAOx3. Temperature 98.6. Assessment as documented (see worklist). Daughter at bedside. Resting in bed with call richardson in reach.
[2025-03-11] MEDS: SYNTHROID 112 MCG PO (05:16)
[2025-03-11 06:13] LABS: Blood Urea Nitrogen 19 mg/dl (9-20); Calcium 8.3 mg/dl (8.4-10.2); Carbon Dioxide 23 mmol/L (22-30); Chloride 109 mmol/L (98-107); Estimated Creatinine Clearance 46 ml/min; Glucose 88 mg/dl (70-99); Potassium 4.0 mmol/L (3.5-5.1); Sodium 138 mmol/L (135-145); eGFR 50.40
[2025-03-11 06:41] LABS: Hematocrit 28.5 % (39.0-52.0); Hemoglobin 9.1 g/dL (13.0-18.0); Mean Corp Hgb Conc. 31.9 g/dL (33.0-37.0); Mean Corpuscular Volume 88.5 fL (80.0-94.0); Nucleated Red Blood Cells % 0 % (-); Platelet Count 235 10^3/uL (130-400); Red Cell Dist. Width 15.9 % (11.5-14.5)
--- NOTE | 2025-03-11 07:00 | PTCARENOTE ---
pt received from previous RN at change of shift. Pt AAOX3. NSR on telemetry heart rate in 90s. pulses palpable. +1 edema. b/l nephrostomy tubes with clear yellow urine. pt updated on plan of care.
[2025-03-11] MEDS: HEPARIN SC (07:34)
--- NOTE | 2025-03-11 08:30 | W.PN.HOSP.TC ---
Today's Communication/Plan
-
Discharge today
Assessment / Plan
Assessment / Plan
Physical Exam
General: Well Developed, Well Nourished
HEENT: Normocephalic
Respiratory: Clear to Auscultation Bilaterally
Cardiac: Regular Rhythm and S1/S2
GI: Soft, Nontender, Nondistended and Normal Bowel Sounds
Genito-urinary: Nephrostomy Tubes (Bilaterally, with yellow urine)
Skin: Warm and Dry
Neuro: Awake, Alert, Oriented and AO x 3
Psych: Calm and Intact Judgement/Insight
Assessment/Plan
HPI: 70 yo M with PMH significant for obstructive uropathy and bilateral PCN tubes s/p prostate radiation, who presented to ED complaining of fevers and chills the day [employer].
He developed obstructive uropathy s/p prostate XRT and had tubes initially placed in 2022. His R PCN was removed for about 4-6 months. He developed UTI / sepsis in November of this year, was admitted at [facility] and the R PCN was replaced at
that time.
He does not urinate from below.
He reported normal urine output from his PCN tubes - always L > > R
# Likely sepsis present on arrival, secondary to complicated UTI, in setting of Chronic Bilateral PCN Tubes for obstructive uropathy
Both PCN tubes appears to be functioning normally per patient.
s/p BL tube exchange by IR 03/09
Admission blood cultures negative, urine culture grew Pseudomonas and Enterococcus
ceftriaxone -> Zosyn for enterococcus coverage
On discharge, Amoxicillin 875 mg Q12H for 7 days, plus Cipro 500 mg Q12H for 5 days
Patient should follow-up with urology at [facility] to discuss management options after discharge
# CKD III, stable.
SCr at 1.5 today, at baseline
# Normocytic Anemia, suspect chronic 2/2 ACD
iron studies suggest ACD
Hgb stable at 9.1 today
# Asthma without Acute Exacerbation, Stable.
Nebs PRN.
# Prostate Cancer s/p XRT
# Hypokalemia
replete
#Hypothyroidism
#Hypercholesterolemia
#Asthma
DVT Prophylaxis: Subcut Heparin
Code Status: Full
More than 30 minutes spent in discharge including
Final examination of the patient
Summarizing hospital stay
Instructions for continuing care to all relevant caregivers
Preparation of discharge records, prescriptions, and referral forms
Total time spent (in minutes): 41
Anticipated Discharge: Today
Subjective/Interval History
-
Date of Service: March 11, 2025
Patient was seen and examined. He reported doing well, denied any new symptoms or complaints.
Objective Data
-
Labs:
Laboratory Results
03/11/25
05:23
WBC 5.3
Hgb 9.1 L
Hct 28.5 L
Plt Count 235 D
Sodium 138
Potassium 4.0
Chloride 109 H
Carbon Dioxide 23
BUN 19
Creatinine 1.5 H
Glucose 88
Calcium 8.3 L
Vital Signs:
Vital Signs
Temp Pulse Resp BP Pulse Ox
98.3 F 68 19 119/87 93
03/11/25 03:00 03/11/25 06:15 03/11/25 06:15 03/11/25 06:00 03/11/25 06:15
I&O
03/10/25 03/11/25 03/12/25
06:59 06:59 06:59
Intake Total 465 / 465 2260 / 2260
Output Total 1415 / 1415 2250 / 2250
Balance -950 / -950
--- NOTE | 2025-03-11 09:35 | CM ---
Patient is cleared for discharge to home today with oral abx. He has declined VN.
Plan: Discharge to home with no identified needs.
--- NOTE | 2025-03-11 13:55 | W.DCSUMMARY ---
Discharge Summary
Discharge Data
Date of Admission: 03/08/25
Date of Discharge: 03/11/25
Total time spent discharging patient (in min): 41
-
Pending Results: No
Hospital Course
70 y/o male with past medical history significant for obstructive uropathy (following prostate cancer status post XRT) and bilateral percutaneous nephrostomy tubes status post prostate radiation who presented to [facility] emergency room complaining of
fevers and chills. Patient was diagnosed with sepsis and complicated UTI, and started on intravenous antibiotics. Interventional Radiology (IR) was consulted, and on 03/09/25, IR performed fluoroscopically guided exchange of left percutaneous
nephroureteral stent and fluoroscopically guided exchange of right percutaneous nephrostomy tube. Urology was consulted. Patient's urine culture grew Pseudomonas aeruginosa and Enterococcus faecalis. Patient was doing well, and stable for discharge
on oral antibiotics.
Discharge Plan
-
Patient Disposition: Home (Routine Discharge)
Discharge Diagnosis/Procedures: Complicated UTI -- with Pseudomonas aeruginosa and Enterococcus faecalis bacteria -- in setting of Chronic Bilateral Percutaneous Nephrostomy Tubes for obstructive uropathy;
status post bilateral tube exchange by IR 03/09/25
Condition: Good
Diet: As tolerated
Activity: As tolerated
Driving Restrictions: As prior to admission
Blood Work: Check Iron, TIBC, Ferritin, CBC and BMP in 5 to 6 days with your primary care provider's office
Activity Restrictions/Additional Instructions:
You should follow-up, as soon as possible, with urology at [facility] to discuss management options.
Please follow-up with your primary care provider in 3 to 4 days, and take your discharge paperwork with you when you see your primary care doctor.
Instructions: Ciprofloxacin (Systemic), Amoxicillin
Referrals:
Sravani Silva MD [Family Provider, Family Practice] - in less than 1 week
Additional Discharge Medication Instructions: Amoxicillin 875 mg Q12H for 7 days, plus Ciprofloxacin 500 mg Q12H for 5 days -- are 2 new antibiotics
Prescriptions:
New
ciprofloxacin HCl 500 mg tablet
500 mg PO Q12H 5 Days Qty: 10 0RF
amoxicillin 875 mg tablet
875 mg PO Q12H 7 Days Qty: 14 0RF
Continued
cetirizine [Zyrtec] 10 mg Tablet
10 mg PO DAILY
albuterol sulfate 90 mcg/actuation Hfa Aerosol Inhaler
2 puff INHALATION R Q6HPRN PRN (Reason: sob)
[id number]-wmriqdmj [Excedrin Extra Strength] 250-250-65 mg Tablet
2 tab PO DAILY
levothyroxine [Synthroid] 112 mcg Tablet
112 mcg PO DAILY
Crestor
1 tab PO DAILY
Symbicort
1 puff inhalation R DAILY
Discharge Orders:
Discharge Patient (As Directed); Ordered 03/10/25
Ordered By: Esperanza Alfonso
Discharge Date and Time
Discharge Date/Time: 03/11/25 14:12
Print Language: INDONESIAN
== END 2025-03-11 14:12 | disposition home or self-care (01) | DRG 872 ==
LOC: IMU 22:03
PROVIDERS: Emergency Medicine; Internal Medicine; Radiology Vascular & Interventional Radiology; Registered Nurse; ADMITTING PHYSICIAN Hospitalist; ATTENDING PHYSICIAN Hospitalist; CONSULT PHYSICIAN Specialist; EMERGENCY PHYSICIAN Emergency Medicine
PROC: 0T25X0Z Change Drainage Device in Kidney, External Approach (ICD-10-PCS; 2025-03-09)
DX: A41.9 Sepsis, unspecified organism (principal); N39.0 Urinary tract infection, site not specified; N13.9 Obstructive and reflux uropathy, unspecified; N18.30 Chronic kidney disease, stage 3 unspecified; D64.9 Anemia, unspecified; J45.909 Unspecified asthma, uncomplicated; Z85.46 Personal history of malignant neoplasm of prostate; Z92.3 Personal history of irradiation; E03.9 Hypothyroidism, unspecified; E78.00 Pure hypercholesterolemia, unspecified; F17.200 Nicotine dependence, unspecified, uncomplicated; Y84.2 Radiological procedure and radiotherapy as the cause of abnormal reaction of the patient, or of later complication, without mention of misadventure at the time of the procedure; Z79.890 Hormone replacement therapy; Z79.899 Other long term (current) drug therapy
CPT/HCPCS: 50387; 50435; 80048; 80053; 81003; 81015; 82728; 83540; 83550; 83605; 83735; 85025; 85027; 87040; 87077; 87086; 87186; 93005; 94640; 96361; 96374; 99152; 99153; 99285; 99406; C1729; C1769